=== PATIENT | male | born 1975 | race Hispanic/Latino ===

== ENCOUNTER 2022-02-08 12:26 | Day surgery (SDC) | payer BC ==
[2022-02-08] MEDS ORDERED: Bupivacaine 0.25% HCL 30 ML VIAL ONE (13:25)
[2022-02-08] MEDS ORDERED: EPINEPHrine 1 MG/ML AMP ONE (13:25)
[2022-02-08] MEDS ORDERED: Midazolam HCl 2 mg/2 ml Vial ONE ×3 (13:45→13:52)
[2022-02-08] MEDS ORDERED: Fentanyl 100 MCG/2 ML VIAL ONE (13:45)
[2022-02-08] MEDS ORDERED: Glycopyrrolate 0.2 MG/ML 5 ML SYRINGE ONE (13:45)
[2022-02-08] MEDS ORDERED: Ondansetron PF 4 MG/2 ML Vial ONE (13:45)
[2022-02-08] MEDS ORDERED: Ketorolac Tromethamine 30 MG/ML VIAL ONE (13:45)
[2022-02-08] MEDS ORDERED: Rocuronium Bromide 10 MG/ML (10ML VIAL) ONE (13:45)
[2022-02-08] MEDS ORDERED: PROPOFOL 20 ML ONE ×2 (13:45→14:58)
[2022-02-08] MEDS ORDERED: Succinylcholine 200 MG/10 ml SYRINGE FS ONE (13:45)
[2022-02-08] MEDS ORDERED: Dexamethasone 4 mg/ml Vial ONE (13:45)
[2022-02-08 14:03] VITALS: BMI 31.3
== END 2022-02-08 16:40 | disposition home or self-care (01) ==
LOC: CSHSDC 12:26
PROVIDERS: ATTEND Surgery
PROC: 0DTJ4ZZ Resection of Appendix, Percutaneous Endoscopic Approach (ICD-10-PCS; principal; 2022-02-08)
DX: K35.80 Unspecified acute appendicitis (principal)
CPT/HCPCS: 88304; A4649; J0171; J1100; J1885; J2250; J2405; J2704; J3010; S0020